=== PATIENT | male | born 1955 | race Caucasian/White ===

== ENCOUNTER → 2017-06-17 | Outpatient (REF) | payer BC | LOC: M SFHCCLAY 07:10 | PROVIDERS: ATTEND Nurse Practitioner Family | DX: Z12.5 Encounter for screening for malignant neoplasm of prostate (principal) ==

== ENCOUNTER → 2017-12-03 | Outpatient (REF) | payer BC ==
[2017-12-03 11:40] LABS: BASO % 0.2 % (0.0-1.0); EOS # 0.2 10^3/uL (0.0-0.50); EOS % 2.3 % (0.0-3.0); HEMOGLOBIN 14.8 g/dl (13.5-17.5); IMMATURE GRANULOCYTE % 0.2 % (0-3.0); LYMPH # 2.3 10^3/uL (1.5-4.5); LYMPH % 35.5 % (24.0-44.0); MEAN CORPUSCULAR HEMOGLOBIN 30.5 pg (27.0-33.0); MEAN CORPUSCULAR HGB CONC 34.4 g/dl (32.0-36.5); MEAN CORPUSCULAR VOLUME 88.5 fl (80.0-96.0); MONO # 0.6 10^3/uL (0.0-0.8); MONO % 9.5 % (0.0-5.0); NEUTROPHILS # 3.4 10^3/uL (1.8-7.7); NEUTROPHILS % 52.3 % (36.0-66.0); PLATELET COUNT, AUTOMATED 180 10^3/uL (150-450); RED BLOOD COUNT 4.86 10^6/uL (4.30-6.10); WHITE BLOOD COUNT 6.5 10^3/uL (4.0-10.0)
[2017-12-03 12:18] LABS: ALBUMIN 3.8 GM/DL (3.2-5.2); ALBUMIN/GLOBULIN RATIO 1.23 (1.00-1.93); ALKALINE PHOSPHATASE 59 U/L (45-117); ALT/SGPT 27 U/L (12-78); ANION GAP 9 MEQ/L (8-16); AST/SGOT 26 U/L (7-37); BILIRUBIN,TOTAL 0.5 MG/DL (0.2-1.0); BLOOD UREA NITROGEN 21 MG/DL (7-18); CALCIUM LEVEL 8.3 MG/DL (8.8-10.2); CARBON DIOXIDE LEVEL 27 MEQ/L (21-32); CHLORIDE LEVEL 106 MEQ/L (98-107); CREATININE FOR GFR 1.08 MG/DL (0.70-1.30); GLOMERULAR FILTRATION RATE > 60.0 (>49); GLUCOSE, FASTING 90 MG/DL (70-100); POTASSIUM SERUM 4.2 MEQ/L (3.5-5.1); PSA SCREENING 1.68 NG/ML (< 4.0); SODIUM LEVEL 142 MEQ/L (136-145); TOTAL PROTEIN 6.9 GM/DL (6.4-8.2)
[2017-12-03 12:56] LABS: HEPATITIS C VIRUS ABY INDEX < 0.0 INDEX (<0.8)
== END ==
LOC: M SFHCCLAY 07:17
DX: I10 Essential (primary) hypertension (principal); Z11.59 Encounter for screening for other viral diseases; Z12.5 Encounter for screening for malignant neoplasm of prostate
CPT/HCPCS: 80053

== ENCOUNTER 2018-01-29 11:00 | Emergency (ER) | payer BC ==
[2018-01-29 11:33] LABS: BASO % 0.2 % (0.0-1.0); EOS # 0.1 10^3/uL (0.0-0.50); EOS % 2.3 % (0.0-3.0); HEMATOCRIT 42.1 % (42.0-52.0); HEMOGLOBIN 14.7 g/dl (13.5-17.5); LYMPH # 2.3 10^3/uL (1.5-4.5); MEAN CORPUSCULAR HEMOGLOBIN 30.8 pg (27.0-33.0); MEAN CORPUSCULAR HGB CONC 34.9 g/dl (32.0-36.5); MEAN CORPUSCULAR VOLUME 88.1 fl (80.0-96.0); MONO # 0.6 10^3/uL (0.0-0.8); MONO % 8.9 % (0.0-5.0); NEUTROPHILS # 3.1 10^3/uL (1.8-7.7); NEUTROPHILS % 50.6 % (36.0-66.0); PLATELET COUNT, AUTOMATED 184 10^3/uL (150-450); RED BLOOD COUNT 4.78 10^6/uL (4.30-6.10); RED CELL DISTRIBUTION WIDTH 12.1 % (11.5-14.5); WHITE BLOOD COUNT 6.2 10^3/uL (4.0-10.0)
[2018-01-29 11:43] LABS: ANION GAP 6 MEQ/L (8-16); BLOOD UREA NITROGEN 19 MG/DL (7-18); CALCIUM LEVEL 8.8 MG/DL (8.8-10.2); CARBON DIOXIDE LEVEL 28 MEQ/L (21-32); CHLORIDE LEVEL 108 MEQ/L (98-107); CREATININE FOR GFR 1.12 MG/DL (0.70-1.30); GLOMERULAR FILTRATION RATE > 60.0 (>49); GLUCOSE, FASTING 128 MG/DL (70-100); POTASSIUM SERUM 4.3 MEQ/L (3.5-5.1); SODIUM LEVEL 142 MEQ/L (136-145)
[2018-01-29] MEDS ORDERED: ISOVUE-370 76% 100ML VIAL (Q9967) As Ordered (11:46)
[2018-01-29] MEDS: NORCO, ANEXSIA 5/325MG TABLET (HYDROcodone/ACETAMINOPHEN) PO (13:37)
== END 2018-01-29 14:03 | disposition home or self-care (01) ==
LOC: M ED 11:00
DX: S22.41XA Multiple fractures of ribs, right side, initial encounter for closed fracture (principal); S22.32XA Fracture of one rib, left side, initial encounter for closed fracture; S80.11XA Contusion of right lower leg, initial encounter; S80.12XA Contusion of left lower leg, initial encounter; W30.81XA Contact with agricultural transport vehicle in stationary use, initial encounter; Y92.098 Other place in other non-institutional residence as the place of occurrence of the external cause; I10 Essential (primary) hypertension; Z79.899 Other long term (current) drug therapy
CPT/HCPCS: Q9967

== ENCOUNTER → 2018-05-19 | Outpatient (CLI) | payer BC | LOC: M SLEEP HO 12:56 | DX: G47.33 Obstructive sleep apnea (adult) (pediatric) (principal) | CPT/HCPCS: G0399 ==

== ENCOUNTER → 2018-06-07 | Outpatient (REF) | payer BC ==
[2018-06-07 13:05] LABS: ALBUMIN/GLOBULIN RATIO 1.29 (1.00-1.93); ALKALINE PHOSPHATASE 74 U/L (45-117); ALT/SGPT 29 U/L (12-78); ANION GAP 5 MEQ/L (8-16); AST/SGOT 24 U/L (7-37); BILIRUBIN,TOTAL 0.5 MG/DL (0.2-1.0); BLOOD UREA NITROGEN 27 MG/DL (7-18); CARBON DIOXIDE LEVEL 29 MEQ/L (21-32); CHLORIDE LEVEL 105 MEQ/L (98-107); CHOLESTEROL LEVEL 180 MG/DL (<200); CHOLESTEROL RISK RATIO 4.736 (<5); CREATININE FOR GFR 1.01 MG/DL (0.70-1.30); GLOMERULAR FILTRATION RATE > 60.0 (>49); GLUCOSE, FASTING 96 MG/DL (70-100); HDL CHOLESTEROL 38 MG/DL (>40); LDL CHOLESTEROL 83 MG/DL (<100); NON-HDL-C 142 MG/DL; POTASSIUM SERUM 4.5 MEQ/L (3.5-5.1); SODIUM LEVEL 139 MEQ/L (136-145); TOTAL PROTEIN 7.1 GM/DL (6.4-8.2); TRIGLYCERIDES LEVEL 295 MG/DL (<150)
== END ==
LOC: M SFHCCLAY 07:39
DX: I10 Essential (primary) hypertension (principal); E78.2 Mixed hyperlipidemia
CPT/HCPCS: 80053

== ENCOUNTER → 2018-06-29 | Outpatient (CLI) | payer BC ==
[~2018-06-29] MED LIST: IBUP-1022 PO; LISI10TA4 PO; NORCOTAB PO
--- NOTE | 2018-07-01 14:50 | SLEEPCENT ---
DATE OF PROCEDURE: 06/29/2018 ORDERING PROVIDER: JADA Mccrary Nocturnal polysomnography was performed for titration of pressure therapy in this patient with clinical diagnosis of obstructive sleep apnea syndrome confirmed by home testing revealing a respiratory event index of 6.7. For testing, a [employer] Quattro Mirage full face mask of medium size was used, 4 cm of water pressure were applied to the circuit, and the lights were extinguished. 8 hours of 6 minutes of data were reviewed. They are 323 minutes of sleep identified. Sleep latency was normal at 10 minutes. Rapid eye movement (REM) latency was delayed at 215 minutes. Sleep architecture improved later in the study with optimal pressure therapy. Some fragmentation persisted and there were periods of wake resulting in reduced sleep efficiency of 67.2%. Two REM cycles were noted. The patient's electrocardiogram showed a sinus rhythm with an average heart rate of 72 beats per minute. Electroencephalogram (EEG) showed normal waveforms for awake and sleep. Respiratory events were best palliated with C-PAP to a pressure of +14 with which the patient slept through REM without respiratory event or oxygen desaturation in the supine posture. There was some limb activity noted early in the study. Limb movement arousal index was somewhat elevated 15.8. IMPRESSION: 1. Obstructive sleep apnea syndrome (G47.33). 2. Possible periodic limb movement disorder (G47.61). Limb movement arousal index 15.8. RECOMMENDATIONS: Initiation of pressure therapy at 14 cm of water should be sufficient to address the patient's respiratory obstructive events. Should sleep symptoms persist, interventions to reduce the frequency arousal from limb activity may be helpful.
== END ==
LOC: M SLEEP 19:46
PROVIDERS: ATTEND Nurse Practitioner Family
DX: G47.33 Obstructive sleep apnea (adult) (pediatric) (principal); G47.61 Periodic limb movement disorder

== ENCOUNTER → 2018-11-23 | Outpatient (REF) | payer BC ==
[~2018-11-23] MED LIST changes: +HYDR-3715 PO; -NORCOTAB PO
[2018-11-23 11:58] LABS: BASO % 0.3 % (0.0-1.0); EOS # 0.2 10^3/uL (0.0-0.50); EOS % 3.1 % (0.0-3.0); HEMATOCRIT 45.8 % (42.0-52.0); HEMOGLOBIN 15.8 g/dl (13.5-17.5); LYMPH # 2.1 10^3/uL (1.5-4.5); LYMPH % 34.9 % (24.0-44.0); MEAN CORPUSCULAR HEMOGLOBIN 31.7 pg (27.0-33.0); MEAN CORPUSCULAR HGB CONC 34.5 g/dl (32.0-36.5); MEAN CORPUSCULAR VOLUME 91.8 fl (80.0-96.0); MONO # 0.6 10^3/uL (0.0-0.8); MONO % 9.1 % (0.0-5.0); NEUTROPHILS # 3.1 10^3/uL (1.8-7.7); NEUTROPHILS % 52.1 % (36.0-66.0); PLATELET COUNT, AUTOMATED 181 10^3/uL (150-450); RED BLOOD COUNT 4.99 10^6/uL (4.30-6.10)
[2018-11-23 12:56] LABS: ALBUMIN 3.7 GM/DL (3.2-5.2); ALT/SGPT 33 U/L (12-78); BILIRUBIN,TOTAL 0.6 MG/DL (0.2-1.0); BLOOD UREA NITROGEN 26 MG/DL (7-18); CALCIUM LEVEL 8.4 MG/DL (8.8-10.2); CARBON DIOXIDE LEVEL 26 MEQ/L (21-32); CHLORIDE LEVEL 106 MEQ/L (98-107); CHOLESTEROL LEVEL 168 MG/DL (<200); CHOLESTEROL RISK RATIO 4.421 (<5); FREE T4 0.88 NG/DL (0.76-1.46); GLOMERULAR FILTRATION RATE > 60.0 (>49); GLUCOSE, FASTING 100 MG/DL (70-100); HDL CHOLESTEROL 38 MG/DL (>40); LDL CHOLESTEROL 64 MG/DL (<100); NON-HDL-C 130 MG/DL; POTASSIUM SERUM 4.2 MEQ/L (3.5-5.1); SODIUM LEVEL 141 MEQ/L (136-145); TOTAL PROTEIN 7.2 GM/DL (6.4-8.2); TRIGLYCERIDES LEVEL 331 MG/DL (<150)
== END ==
LOC: M SFHCCLAY 07:35
PROVIDERS: ATTEND Nurse Practitioner Family
DX: E78.2 Mixed hyperlipidemia (principal); I10 Essential (primary) hypertension; G47.30 Sleep apnea, unspecified

== ENCOUNTER → 2019-05-31 | Outpatient (REF) | payer BC ==
[2019-05-31 11:37] LABS: ALBUMIN 3.7 GM/DL (3.2-5.2); ALT/SGPT 33 U/L (12-78); BILIRUBIN,TOTAL 0.5 MG/DL (0.2-1.0); BLOOD UREA NITROGEN 27 MG/DL (7-18); CALCIUM LEVEL 8.5 MG/DL (8.8-10.2); CARBON DIOXIDE LEVEL 30 MEQ/L (21-32); CHLORIDE LEVEL 105 MEQ/L (98-107); CHOLESTEROL LEVEL 163 MG/DL (<200); CHOLESTEROL RISK RATIO 4.794 (<5); CREATININE FOR GFR 0.99 MG/DL (0.70-1.30); FREE T4 0.79 NG/DL (0.76-1.46); GLOMERULAR FILTRATION RATE > 60.0 (>49); GLUCOSE, FASTING 101 MG/DL (70-100); HDL CHOLESTEROL 34 MG/DL (>40); LDL CHOLESTEROL 54 MG/DL (<100); NON-HDL-C 129 MG/DL; POTASSIUM SERUM 4.5 MEQ/L (3.5-5.1); SODIUM LEVEL 140 MEQ/L (136-145); TOTAL PROTEIN 7.3 GM/DL (6.4-8.2); TRIGLYCERIDES LEVEL 373 MG/DL (<150)
== END ==
LOC: M SFHCCLAY 07:40
PROVIDERS: ATTEND Nurse Practitioner Family
DX: I10 Essential (primary) hypertension (principal); E78.2 Mixed hyperlipidemia

== ENCOUNTER → 2019-08-18 | Outpatient (REF) | payer BC ==
[2019-08-18 12:42] LABS: BASO % 0.1 % (0.0-1.0); EOS # 0.1 10^3/uL (0.0-0.5); EOS % 1.8 % (0.0-3.0); HEMATOCRIT 46.8 % (42.0-52.0); HEMOGLOBIN 15.4 g/dl (13.5-17.5); LYMPH # 2.5 10^3/uL (1.5-5.0); LYMPH % 37.3 % (24.0-44.0); MEAN CORPUSCULAR HEMOGLOBIN 30.5 pg (27.0-33.0); MEAN CORPUSCULAR HGB CONC 32.9 g/dl (32.0-36.5); MEAN CORPUSCULAR VOLUME 92.7 fl (80.0-96.0); MONO # 0.6 10^3/uL (0.0-0.8); MONO % 9.5 % (0.0-5.0); NEUTROPHILS # 3.4 10^3/uL (1.5-8.5); PLATELET COUNT, AUTOMATED 193 10^3/uL (150-450); RED BLOOD COUNT 5.05 10^6/uL (4.30-6.10); WHITE BLOOD COUNT 6.7 10^3/uL (4.0-10.0)
[2019-08-18 13:00] LABS: ALBUMIN 3.9 GM/DL (3.2-5.2); BILIRUBIN,TOTAL 0.5 MG/DL (0.2-1.0); CALCIUM LEVEL 8.6 MG/DL (8.8-10.2); CREATININE FOR GFR 1.35 MG/DL (0.70-1.30); FREE T4 1.03 NG/DL (0.76-1.46); GLOMERULAR FILTRATION RATE 56.6 (>49); POTASSIUM SERUM 4.5 MEQ/L (3.5-5.1); THYROID STIMULATING HORMONE 2.55 uIU/ML (0.358-3.740); TOTAL PROTEIN 7.3 GM/DL (6.4-8.2)
== END ==
LOC: M SFHCCLAY 07:18
PROVIDERS: ATTEND Nurse Practitioner Family
DX: Z01.818 Encounter for other preprocedural examination (principal); M17.12 Unilateral primary osteoarthritis, left knee; I10 Essential (primary) hypertension; E03.9 Hypothyroidism, unspecified

== ENCOUNTER → 2019-11-29 | Outpatient (REF) | payer BC ==
[2019-11-29 12:22] LABS: ALBUMIN 3.8 GM/DL (3.2-5.2); ALT/SGPT 24 U/L (12-78); BILIRUBIN,TOTAL 0.6 MG/DL (0.2-1.0); BLOOD UREA NITROGEN 14 MG/DL (7-18); CALCIUM LEVEL 8.3 MG/DL (8.8-10.2); CARBON DIOXIDE LEVEL 28 MEQ/L (21-32); CHLORIDE LEVEL 107 MEQ/L (98-107); CHOLESTEROL LEVEL 164 MG/DL (<200); CHOLESTEROL RISK RATIO 4.823 (<5); CREATININE FOR GFR 0.94 MG/DL (0.70-1.30); FREE T4 1.01 NG/DL (0.76-1.46); GLOMERULAR FILTRATION RATE > 60.0 (>49); GLUCOSE, FASTING 94 MG/DL (70-100); HDL CHOLESTEROL 34 MG/DL (>40); LDL CHOLESTEROL 73 MG/DL (<100); NON-HDL-C 130 MG/DL; POTASSIUM SERUM 4.3 MEQ/L (3.5-5.1); SODIUM LEVEL 141 MEQ/L (136-145); TOTAL 25(OH) VITAMIN D 32.2 NG/ML (30.0-100.0); TOTAL PROTEIN 7.4 GM/DL (6.4-8.2); TRIGLYCERIDES LEVEL 286 MG/DL (<150)
[2019-11-29 12:28] LABS: HEMOGLOBIN A1c 5.9 %
== END ==
LOC: M SFHCCLAY 08:11
PROVIDERS: ATTEND Nurse Practitioner Family
DX: E03.9 Hypothyroidism, unspecified (principal); E78.2 Mixed hyperlipidemia; I10 Essential (primary) hypertension; Z13.1 Encounter for screening for diabetes mellitus

== ENCOUNTER → 2020-05-29 | Outpatient (REF) | payer BC ==
[2020-05-29 13:07] LABS: HEMOGLOBIN A1c 5.2 %
[2020-05-29 13:34] LABS: ALBUMIN 3.7 GM/DL (3.2-5.2); ALT/SGPT 26 U/L (12-78); BILIRUBIN,TOTAL 0.5 MG/DL (0.2-1.0); BLOOD UREA NITROGEN 23 MG/DL (7-18); CARBON DIOXIDE LEVEL 29 MEQ/L (21-32); CHLORIDE LEVEL 106 MEQ/L (98-107); CHOLESTEROL LEVEL 156 MG/DL (<200); CHOLESTEROL RISK RATIO 3.804 (<5); CREATININE FOR GFR 1.07 MG/DL (0.70-1.30); GLOMERULAR FILTRATION RATE > 60.0 (>49); GLUCOSE, FASTING 92 MG/DL (70-100); HDL CHOLESTEROL 41 MG/DL (>40); LDL CHOLESTEROL 82 MG/DL (<100); NON-HDL-C 115 MG/DL; POTASSIUM SERUM 4.6 MEQ/L (3.5-5.1); SODIUM LEVEL 140 MEQ/L (136-145); TOTAL PROTEIN 7.1 GM/DL (6.4-8.2); TRIGLYCERIDES LEVEL 167 MG/DL (<150)
== END ==
LOC: M SFHCCLAY 08:07
PROVIDERS: ATTEND Nurse Practitioner Family
DX: R73.03 Prediabetes (principal); I10 Essential (primary) hypertension

== ENCOUNTER → 2020-08-22 | Outpatient (REF) | payer BC ==
[~2020-08-22] MED LIST changes: +LISI10TA22 PO; -LISI10TA4 PO
== END ==
LOC: M SFHCCLAY 07:09
PROVIDERS: ATTEND Nurse Practitioner Family
DX: Z53.9 Procedure and treatment not carried out, unspecified reason (principal); I10 Essential (primary) hypertension; E78.2 Mixed hyperlipidemia; M54.5 Low back pain; G89.29 Other chronic pain

== ENCOUNTER → 2020-08-28 | Outpatient (CLI) | payer BC, SELFPAY | LOC: M LABSMTC 10:25 | PROVIDERS: ATTEND Orthopaedic Surgery Orthopaedic Surgery of the Spine | DX: Z20.822 Contact with and (suspected) exposure to COVID-19 (principal) ==

== ENCOUNTER → 2021-05-29 | Outpatient (REF) | payer BC ==
[2021-05-29 11:21] LABS: BASO % 0.3 % (0.0-1.0); EOS # 0.2 10^3/uL (0.0-0.5); EOS % 3.5 % (0.0-3.0); HEMATOCRIT 43.4 % (42.0-52.0); HEMOGLOBIN 14.7 g/dl (13.5-17.5); LYMPH # 2.6 10^3/uL (1.5-5.0); LYMPH % 37.5 % (24.0-44.0); MEAN CORPUSCULAR HGB CONC 33.9 g/dl (32.0-36.5); MEAN CORPUSCULAR VOLUME 91.6 fl (80.0-96.0); MONO # 0.7 10^3/uL (0.0-0.8); NEUTROPHILS # 3.3 10^3/uL (1.5-8.5); NEUTROPHILS % 48.4 % (36.0-66.0); PLATELET COUNT, AUTOMATED 156 10^3/uL (150-450); RED BLOOD COUNT 4.74 10^6/uL (4.30-6.10); WHITE BLOOD COUNT 6.8 10^3/uL (4.0-10.0)
[2021-05-29 12:34] LABS: ALBUMIN 3.5 GM/DL (3.2-5.2); ALT/SGPT 32 U/L (12-78); BILIRUBIN,TOTAL 0.4 MG/DL (0.2-1.0); BLOOD UREA NITROGEN 20 MG/DL (7-18); CALCIUM LEVEL 8.9 MG/DL (8.8-10.2); CARBON DIOXIDE LEVEL 29 MEQ/L (21-32); CHLORIDE LEVEL 107 MEQ/L (98-107); CHOLESTEROL LEVEL 161 MG/DL (<200); CHOLESTEROL RISK RATIO 4.878 (<5); CREATININE FOR GFR 0.91 MG/DL (0.70-1.30); FREE T4 0.79 NG/DL (0.76-1.46); GLOMERULAR FILTRATION RATE > 60.0 (>49); GLUCOSE, FASTING 92 MG/DL (70-100); HDL CHOLESTEROL 33 MG/DL (>40); LDL CHOLESTEROL 59 MG/DL (<100); NON-HDL-C 128 MG/DL; POTASSIUM SERUM 4.2 MEQ/L (3.5-5.1); SODIUM LEVEL 138 MEQ/L (136-145); TOTAL PROTEIN 7.1 GM/DL (6.4-8.2); TRIGLYCERIDES LEVEL 345 MG/DL (<150)
== END ==
LOC: M SFHCCLAY 07:32
PROVIDERS: ATTEND Nurse Practitioner Family
DX: I10 Essential (primary) hypertension (principal); E78.2 Mixed hyperlipidemia; G47.30 Sleep apnea, unspecified; E03.9 Hypothyroidism, unspecified

== ENCOUNTER → 2021-12-01 | Outpatient (REF) | payer BC ==
[2021-12-01 12:14] LABS: ALBUMIN 3.6 GM/DL (3.2-5.2); ALT/SGPT 29 U/L (12-78); BILIRUBIN,TOTAL 0.5 MG/DL (0.2-1.0); BLOOD UREA NITROGEN 19 MG/DL (7-18); CARBON DIOXIDE LEVEL 27 MEQ/L (21-32); CHLORIDE LEVEL 110 MEQ/L (98-107); CREATININE FOR GFR 0.94 MG/DL (0.70-1.30); GLOMERULAR FILTRATION RATE > 60.0 (>49); GLUCOSE, FASTING 96 MG/DL (70-100); POTASSIUM SERUM 4.4 MEQ/L (3.5-5.1); SODIUM LEVEL 144 MEQ/L (136-145); TOTAL PROTEIN 6.9 GM/DL (6.4-8.2)
== END ==
LOC: M SFHCCLAY 07:31
PROVIDERS: ATTEND Nurse Practitioner Family
DX: I10 Essential (primary) hypertension (principal); E78.2 Mixed hyperlipidemia; G47.30 Sleep apnea, unspecified; E03.9 Hypothyroidism, unspecified

== ENCOUNTER → 2022-06-01 | Outpatient (REF) | payer BC ==
[2022-06-01 11:20] LABS: BASO % 0.2 % (0.0-1.0); EOS # 0.1 10^3/uL (0.0-0.5); EOS % 2.3 % (0.0-3.0); HEMATOCRIT 46.5 % (42.0-52.0); HEMOGLOBIN 15.4 g/dl (13.5-17.5); LYMPH # 2.5 10^3/uL (1.5-5.0); LYMPH % 40.3 % (24.0-44.0); MEAN CORPUSCULAR HEMOGLOBIN 30.9 pg (27.0-33.0); MEAN CORPUSCULAR HGB CONC 33.1 g/dl (32.0-36.5); MEAN CORPUSCULAR VOLUME 93.4 fl (80.0-96.0); MONO # 0.6 10^3/uL (0.0-0.8); NEUTROPHILS # 2.9 10^3/uL (1.5-8.5); PLATELET COUNT, AUTOMATED 175 10^3/uL (150-450); RED BLOOD COUNT 4.98 10^6/uL (4.30-6.10); WHITE BLOOD COUNT 6.2 10^3/uL (4.0-10.0)
[2022-06-01 11:57] LABS: ALT/SGPT 25 U/L (7.0-40); BILIRUBIN,TOTAL 0.5 MG/DL (0.3-1.2); BLOOD UREA NITROGEN 18 MG/DL (9-23); CALCIUM LEVEL 8.2 MG/DL (8.3-10.6); CARBON DIOXIDE LEVEL 29 MMOL/L (20-31); CHLORIDE LEVEL 104 MMOL/L (98-107); CHOLESTEROL LEVEL 140 MG/DL (<200); CHOLESTEROL RISK RATIO 4.01 (<5); CREATININE FOR GFR 0.92 MG/DL (0.70-1.30); FREE T4 1.03 NG/DL (0.89-1.76); GLOMERULAR FILTRATION RATE > 60.0 (>49); GLUCOSE, FASTING 96 MG/DL (74-106); HDL CHOLESTEROL 34.9 MG/DL (>40); LDL CHOLESTEROL 64.9 MG/DL (<100); NON-HDL-C 105 MG/DL; POTASSIUM SERUM 4.3 MMOL/L (3.5-5.1); SODIUM LEVEL 140 MMOL/L (136-145); THYROID STIMULATING HORMONE 3.404 uIU/ML (0.55-4.78); TOTAL PROTEIN 6.7 G/DL (5.7-8.2); TRIGLYCERIDES LEVEL 201 MG/DL (<150)
[2022-06-01 12:26] LABS: HEMOGLOBIN A1c 5.2 % (4.0-6.0)
== END ==
LOC: M SFHCCLAY 07:54
PROVIDERS: ATTEND Nurse Practitioner Family
DX: I10 Essential (primary) hypertension (principal); E78.2 Mixed hyperlipidemia; G47.30 Sleep apnea, unspecified; E03.9 Hypothyroidism, unspecified; R73.03 Prediabetes

== ENCOUNTER → 2022-07-02 | Outpatient (CLI) | payer BC | LOC: M SOG 07:48 | PROVIDERS: ATTEND Physician Assistant | DX: M25.531 Pain in right wrist (principal); M25.532 Pain in left wrist; M19.032 Primary osteoarthritis, left wrist; M19.031 Primary osteoarthritis, right wrist; M25.832 Other specified joint disorders, left wrist ==

== ENCOUNTER 2022-11-20 09:45 | Day surgery (SDC) | payer BC ==
[~2022-11-20] VITALS: Ht 177.8 cm; Wt 97.1 kg
[~2022-11-20 09:45] MED LIST changes: +LEVO25TA5 PO; +NS 1,000 ML IV ONE; +TAMS1CAP17 PO; +VITMTA PO
[2022-11-20] MEDS ORDERED: fentaNYL 100 MCG/2 ML INJECTION As Ordered ONE (11:23)
[2022-11-20] MEDS ORDERED: LIDOCAINE 2% MDV 20ML VIAL As Ordered ONE (11:23)
[2022-11-20] MEDS ORDERED: propofoL 500 MG/50 ML VIAL As Ordered ONE (11:23)
[2022-11-20] MEDS ORDERED: LIDOCAINE 2% 100MG/5ML SDV (FOR ANES.) As Ordered ONE (11:27)
[2022-11-20] MEDS ORDERED: PHENYLephrine 500MCG 5ML (100MCG/ML) SYRINGE As Ordered ONE (12:21)
[2022-11-20] MEDS ORDERED: ePHEDrine SULFATE 25 MG/5 ML(5MG/ML) SYRINGE As Ordered ONE (12:22)
[2022-11-20 13:19] VITALS: BP 126/69
== END 2022-11-20 13:21 | disposition home or self-care (01) ==
LOC: M OPP 09:45
PROVIDERS: ATTEND Internal Medicine Gastroenterology
DX: Z12.11 Encounter for screening for malignant neoplasm of colon (principal); D12.0 Benign neoplasm of cecum; K57.30 Diverticulosis of large intestine without perforation or abscess without bleeding; K64.8 Other hemorrhoids; K22.2 Esophageal obstruction; K21.00 Gastro-esophageal reflux disease with esophagitis, without bleeding; G47.33 Obstructive sleep apnea (adult) (pediatric); Z99.89 Dependence on other enabling machines and devices; Z79.1 Long term (current) use of non-steroidal anti-inflammatories (NSAID); Z79.890 Hormone replacement therapy; Z79.891 Long term (current) use of opiate analgesic; Z79.899 Other long term (current) drug therapy
CPT/HCPCS: 43239; 43249; 45385; 88305; J3010

== ENCOUNTER → 2023-07-13 | Outpatient (REF) | payer BC ==
[~2023-07-13] MED LIST changes: -NS 1,000 ML IV ONE
[2023-07-13 12:23] LABS: ALBUMIN 3.8 G/DL (3.2-5.2); ALKALINE PHOSPHATASE 53 U/L (46-116); ALT/SGPT 29 U/L (7.0-40); AST/SGOT 26 U/L (<34); BILIRUBIN,TOTAL 0.8 MG/DL (0.3-1.2); BLOOD UREA NITROGEN 23 MG/DL (9-23); CALCIUM LEVEL 8.7 MG/DL (8.3-10.6); CARBON DIOXIDE LEVEL 29 MMOL/L (20-31); CHLORIDE LEVEL 105 MMOL/L (98-107); CHOLESTEROL LEVEL 153 MG/DL (<200); CHOLESTEROL RISK RATIO 4.28 (<5); CREATININE FOR GFR 1.04 MG/DL (0.70-1.30); FREE T4 0.94 NG/DL (0.89-1.76); GLOMERULAR FILTRATION RATE > 60.0 (>49); GLUCOSE, FASTING 102 MG/DL (74-106); HDL CHOLESTEROL 35.7 MG/DL (>40); LDL CHOLESTEROL 58.7 MG/DL (<100); NON-HDL-C 117.3 MG/DL; POTASSIUM SERUM 4.3 MMOL/L (3.5-5.1); SODIUM LEVEL 138 MMOL/L (136-145); THYROID STIMULATING HORMONE 3.752 uIU/ML (0.55-4.78); TOTAL 25(OH) VITAMIN D 43.5 NG/ML (20.0-100.0); TOTAL PROTEIN 6.7 G/DL (5.7-8.2); TRIGLYCERIDES LEVEL 293 MG/DL (<150)
[2023-07-13 12:24] LABS: BASO % 0.3 % (0.0-1.0); EOS # 0.2 10^3/uL (0.0-0.5); EOS % 2.5 % (0.0-3.0); HEMATOCRIT 45.2 % (42.0-52.0); HEMOGLOBIN 15.1 g/dl (13.5-17.5); LYMPH # 2.1 10^3/uL (1.5-5.0); LYMPH % 28.5 % (24.0-44.0); MEAN CORPUSCULAR HEMOGLOBIN 31.1 pg (27.0-33.0); MEAN CORPUSCULAR HGB CONC 33.4 g/dl (32.0-36.5); MEAN CORPUSCULAR VOLUME 93.2 fl (80.0-96.0); MONO # 0.6 10^3/uL (0.0-0.8); MONO % 8.7 % (2.0-8.0); NEUTROPHILS # 4.4 10^3/uL (1.5-8.5); NEUTROPHILS % 59.7 % (36.0-66.0); PLATELET COUNT, AUTOMATED 162 10^3/uL (150-450); RED BLOOD COUNT 4.85 10^6/uL (4.30-6.10); WHITE BLOOD COUNT 7.3 10^3/uL (4.0-10.0)
[2023-07-13 12:29] LABS: HEMOGLOBIN A1c 5.3 % (4.0-6.0)
== END ==
LOC: M SFHCCLAY 07:31
PROVIDERS: ATTEND Nurse Practitioner Family
DX: I10 Essential (primary) hypertension (principal); E03.9 Hypothyroidism, unspecified; E78.2 Mixed hyperlipidemia; G47.30 Sleep apnea, unspecified; R73.03 Prediabetes

== ENCOUNTER → 2023-09-30 | Outpatient (CLI) | payer BC, OTHER | LOC: M CLY 14:45 | PROVIDERS: ATTEND Nurse Practitioner Family | DX: Z96.652 Presence of left artificial knee joint (principal) ==

== ENCOUNTER → 2024-01-07 | Outpatient (REF) | payer BC | LOC: M SFHCCLAY 07:56 | PROVIDERS: ATTEND Nurse Practitioner Family | DX: R39.9 Unspecified symptoms and signs involving the genitourinary system (principal) ==

== ENCOUNTER → 2024-07-13 | Outpatient (REF) | payer BC ==
[2024-07-13 12:04] LABS: BASO % 0.3 % (0.0-1.0); EOS # 0.2 10^3/uL (0.0-0.5); HEMATOCRIT 45.9 % (42.0-52.0); HEMOGLOBIN 15.5 g/dl (13.5-17.5); LYMPH # 2.1 10^3/uL (1.5-5.0); LYMPH % 36.1 % (24.0-44.0); MEAN CORPUSCULAR HEMOGLOBIN 31.2 pg (27.0-33.0); MEAN CORPUSCULAR HGB CONC 33.8 g/dl (32.0-36.5); MEAN CORPUSCULAR VOLUME 92.4 fl (80.0-96.0); MONO # 0.5 10^3/uL (0.0-0.8); MONO % 8.9 % (2.0-8.0); NEUTROPHILS % 51.4 % (36.0-66.0); PLATELET COUNT, AUTOMATED 161 10^3/uL (150-450); RED BLOOD COUNT 4.97 10^6/uL (4.30-6.10); WHITE BLOOD COUNT 5.9 10^3/uL (4.0-10.0)
[2024-07-13 12:19] LABS: HEMOGLOBIN A1c 5.4 % (4.0-6.0)
[2024-07-13 12:34] LABS: ALBUMIN 3.9 G/DL (3.2-5.2); ALKALINE PHOSPHATASE 56 U/L (40-129); ALT/SGPT 32 U/L (7.0-40); AST/SGOT 30 U/L (<34); BILIRUBIN,TOTAL 0.5 MG/DL (0.3-1.2); BLOOD UREA NITROGEN 22 MG/DL (9-23); CALCIUM LEVEL 9.7 MG/DL (8.3-10.6); CARBON DIOXIDE LEVEL 28 MMOL/L (20-31); CHLORIDE LEVEL 104 MMOL/L (98-107); CHOLESTEROL LEVEL 164 MG/DL (<200); CREATININE FOR GFR 0.92 MG/DL (0.70-1.30); GLOMERULAR FILTRATION RATE > 60.0 (>49); GLUCOSE, FASTING 97 MG/DL (74-106); HDL CHOLESTEROL 38.1 MG/DL (>40); LDL CHOLESTEROL 70.3 MG/DL (<100); NON-HDL-C 125.9 MG/DL; POTASSIUM SERUM 4.4 MMOL/L (3.5-5.1); PSA SCREENING 1.81 NG/ML (< 4.00); SODIUM LEVEL 142 MMOL/L (136-145); THYROID STIMULATING HORMONE 3.061 uIU/ML (0.55-4.78); TOTAL 25(OH) VITAMIN D 40.1 NG/ML (20.0-100.0); TOTAL PROTEIN 7.3 G/DL (5.7-8.2); TRIGLYCERIDES LEVEL 278 MG/DL (<150)
== END ==
LOC: M SFHCCLAY 08:03
PROVIDERS: ATTEND Nurse Practitioner Family
DX: I10 Essential (primary) hypertension (principal); E03.9 Hypothyroidism, unspecified; E78.2 Mixed hyperlipidemia; G47.30 Sleep apnea, unspecified; R73.03 Prediabetes; R39.9 Unspecified symptoms and signs involving the genitourinary system
CPT/HCPCS: 80053; 80061; 82306; 83036; 84439; 84443; 85025; G0103